=== PATIENT | female | born 1985 | race Caucasian/White ===

== ENCOUNTER 2022-08-29 17:01 | Emergency (ER) | payer MEDICARE, SELFPAY ==
[2022-08-29 17:10] VITALS: BP 122/82; PULSE 89; RESP 16; TEMP 36.7; O2SAT 97; BMI 40.3
[2022-08-29 18:29] LABS: Basophils % 0.4 %; Eosinophils # 0.1 10^3/uL (0.0-0.8); Hematocrit 42.4 % (37.0-47.0); Hemoglobin 13.3 g/dL (11.5-15.3); Lymphocytes # 2.5 10^3/uL (0.8-4.8); Lymphocytes % 22.3 %; Mean Corpuscular HGB Conc 31.4 g/dL (30.0-36.0); Mean Corpuscular Hemoglobin 28.2 pg (28.0-34.0); Mean Platelet Volume 9.9 fL (7.4-10.4); Monocytes # 0.5 10^3/uL (0.2-0.9); Neutrophils # 8.12 10^3/uL (1.8-7.7); Neutrophils % 71.8 %; Nucleated Red Blood Cells % 0 %; Platelet Count 263 10^3/cmm (130-400); Red Blood Count 4.71 10^6/uL (4.1-5.3); Red Cell Distribution Width 14.1 % (12.1-15.1); White Blood Count 11.3 10^3/uL (4.0-10.0)
[2022-08-29 18:51] LABS: Alanine Aminotransferase 26 U/L (0-33); Albumin Level 3.8 g/dL (3.5-5.2); Alkaline Phosphatase 108 U/L (35-105); Anion Gap 11.6 (5-19); Aspartate Amino Transferase 21 U/L (0-32); Blood Urea Nitrogen 5 mg/dL (6-20); Calcium 8.5 mg/dL (8.5-10.5); Carbon Dioxide 28 mmol/L (22-29); Chloride 94 mmol/L (98-107); Globulin 3.5 g/dL (1.3-4.6); Glomerular Filtration Rate 112.5 mL/min (90-130); Glucose 135 mg/dL (65-115); Osmolality Calculated 269 mOsm/kg (285-295); Potassium 3.6 mmol/L (3.5-5.1); Sodium 130 mmol/L (136-145); Total Bilirubin 0.2 mg/dL (0.15-1.2); Total Protein 7.3 g/dL (6.6-8.7)
[2022-08-29 18:53] VITALS: BP 118/93; PULSE 89; RESP 18; O2SAT 99
[2022-08-29 19:09] LABS: HCG Qualitative Urine. Negative (Negative)
[2022-08-29 19:10] LABS: Amphetamines Screen Urine Negative (Negative); Barbiturates Screen Urine Negative (Negative); Benzodiazepines Screen Urine Negative (Negative); Cocaine Screen Urine Negative (Negative); Opiate Screen Urine Negative (Negative); PCP Screen Urine Negative (Negative); THC Screen Urine Negative (Negative)
[2022-08-29 19:18] LABS: Protein Urine Neg (Negative); Specific Gravity, Urine 1.015 (1.005-1.030); Urine Appearance Hazy (CLEAR); Urine Color Yellow (Yellow); pH Urine 5 (5-7)
[2022-08-29 19:19] LABS: Add Urine Microscopic? YES; Bacteria Urine 1+ /hpf; Bilirubin Urine Neg (Negative); Blood Urine Neg (Negative); Glucose Urine UA Norm (Normal); Ketones Urine Negative (Negative); Leukocyte Esterase Urine Trace (Negative); Nitrate Urine Negative (Negative); Urobilinogen Urine Norm (Negative)
[2022-08-29 19:20] LABS: RBC Urine 0-4 /hpf (0-2); WBC Urine 0-4 /hpf (0-5)
[2022-08-29 19:30] VITALS: BP 109/67; PULSE 92; O2SAT 98
--- NOTE | 2022-08-29 20:39 | USR_ITS ---
PROCEDURE INFORMATION: Exam: US Duplex Artery or Vein of the Abdominal and/or Reproductive Organs, Limited Exam date and time: 08/29/2022 9:23 PM Age: 36 years old Clinical indication: Pelvic pain; Prior surgery; Surgery date: 6+ months; Surgery type: RT tube removed secondary to ectopic; Additional info: Suprapubic/lb pain, missed cycle x23 days, neg upt. Suprapubic pain and lb pain TECHNIQUE: Imaging protocol: Real-time duplex ultrasound scan of the arterial or venous flow of the abdomen and/or reproductive organs, with color Doppler flow and spectral waveform analysis with image documentation. Exam focused on the region of clinical interest. Duplex exam was performed to evaluate for vascular conditions. COMPARISON: No relevant prior studies available. FINDINGS: The uterus measures about 10 cm in length. There is no visible focal myometrial mass. Presumed complex nabothian cyst in the cervix, measuring 24 x 15 x 23 mm. There is no intrauterine fluid. Endometrial thickness is 6.6 mm. There is no significant free pelvic fluid. The right ovary measures 38 x 27 x 34 mm, estimated volume 17.7 cc. Small complex cyst versus dominant follicle in the right ovary, measuring 22 x 18 x 22 mm. Significance uncertain due to relatively small size. As clinically directed, follow up in one to three months may be useful to evaluate for resolution of a physiologic cyst, and to guard against a persistent/enlarging lesion. The left ovary measures 38 x 25 x 33 mm, estimated volume 16.5 cc. The left ovary contains a 12 x 8 mm dominant follicle versus extremely small cyst. Significance unlikely due to small size. Ovarian blood flow was evaluated with color and spectral Doppler imaging. Arterial blood flow detected within each ovary. The urinary bladder was not completely evaluated/imaged at this time. Endovaginal scanning provided better visualization/evaluation of the endometrium and ovaries/adnexal regions, as discussed above. PROCEDURE INFORMATION: Exam: US Pelvis Complete, Transabdominal and US Pelvis, Transvaginal Exam date and time: 08/29/2022 9:23 PM Age: 36 years old Clinical indication: Pelvic pain; Prior surgery; Surgery date: 6+ months; Surgery type: RT tube removed secondary to ectopic; Additional info: Suprapubic/lb pain, missed cycle x23 days, neg upt. Suprapubic pain and lb pain TECHNIQUE: Imaging protocol: Real-time complete transabdominal and transvaginal pelvic ultrasound with image documentation. Transvaginal imaging was used for better evaluation of the endometrium, adnexa, and/or cervix. COMPARISON: No relevant prior studies available. FINDINGS: The uterus measures about 10 cm in length. There is no visible focal myometrial mass. Presumed complex nabothian cyst in the cervix, measuring 24 x 15 x 23 mm. There is no intrauterine fluid. Endometrial thickness is 6.6 mm. There is no significant free pelvic fluid. The right ovary measures 38 x 27 x 34 mm, estimated volume 17.7 cc. Small complex cyst versus dominant follicle in the right ovary, measuring 22 x 18 x 22 mm. Significance uncertain due to relatively small size. As clinically directed, follow up in one to three months may be useful to evaluate for resolution of a physiologic cyst, and to guard against a persistent/enlarging lesion. The left ovary measures 38 x 25 x 33 mm, estimated volume 16.5 cc. The left ovary contains a 12 x 8 mm dominant follicle versus extremely small cyst. Significance unlikely due to small size. Ovarian blood flow was evaluated with color and spectral Doppler imaging. Arterial blood flow detected within each ovary. The urinary bladder was not completely evaluated/imaged at this time. Endovaginal scanning provided better visualization/evaluation of the endometrium and ovaries/adnexal regions, as discussed above. US/US pelv w/transvag [id number] IMPRESSION: 1. 22 x 18 x 22 mm small complex cyst versus dominant follicle in the right ovary, see above discussion. 2. The left ovary contains a 12 x 8 mm dominant follicle versus extremely small cyst. 3. Blood flow detected in each ovary. 4. Presumed complex nabothian cyst in the cervix, measuring 24 x 15 x 23 mm. 5. Other details discussed above.
--- NOTE | 2022-08-29 20:51 | ED_ITS ---
HPI - Dizziness General: Chief Complaint: Dizziness Stated Complaint: dizzy/lower back pain (er in [place] 2 weeks ago) Time Seen by Provider: 08/29/22 18:50 Source: patient Mode of arrival: ambulatory Limitations: no limitations History of Present Illness: HPI Narrative: Patient presents emergency department today for evaluation treatment of continued low abdominal pain and low back pain with dysuria. Patient states she was seen and evaluated in outside emergency department where they did a urinalysis which they told her was negative and sent her home. She states she had no blood test or any further evaluation at that time. Patient reports suprapubic pain and dysuria with a white discharge vaginally and itching. She denies any recent antibiotic use. She did try an [id number] yeast medication without any improvement of her symptoms. Patient presents today she still has the symptoms but also developed some dizziness and nausea. It is not constant and she notes that movement-especially standing up makes it worse. She denies any headache associated with this dizziness or fever. She is able to resolve her symptoms by being seated or laying down. Patient reports she is sexually active with her partner. She is not on any type of control. Patient in the room denies any symptoms of discharge or dysuria himself. Patient reports typically having regular menstrual cycles but, states she is 23 days late from her normal cycle with her last menstrual period being August 06 lasting approximately 3 days. She does not have an MARKETING BUSINESS ANALYST. She reports having an ectopic and reportedly having her right ovary and fallopian tube removed approximately 5 years ago. She also had a miscarriage last year per her report. Review of Systems General: Reports: 10 or more systems reviewed and unremarkable except in HPI and below Physical Exam Const: COMMON NORMALS: no acute distress, patient oriented x3 and alert HENMT: COMMON NORMALS: normocephalic, atraumatic, hearing grossly normal bilaterally and moist oral mucous membranes HEAD & SCALP: normocephalic and atraumatic Eye: COMMON NORMALS: Equal, round and reactive pupils present, EOMs intact bilaterally and conjunctivae normal CONJUNCTIVA: Yes conjunctivae normal PUPIL: Yes Equal, round and reactive pupils present Neck/C-Spine: COMMON NORMALS: no JVD OTHER: Full range of motion to the neck with out difficulty or pain. Lymph: LYMPHATIC: no lymphadenopathy noted Resp: COMMON NORMALS: normal respiratory effort, No retractions and No use of accessory muscles Cardio: COMMON NORMALS: no JVD and regular rate RATE: regular rate GI: OTHER: Large body habitus but, pain across the suprapubic region. : COMMON NORMALS: Yes no CVA tenderness BLADDER/KIDNEY EXAM: Yes no CVA tenderness Back/Pelvis: COMMON NORMALS: no CVA tenderness, thoracic and lumbar spine normal to inspection and thoraco-lumbar ROM normal Extremity: COMMON NORMALS: normal to inspection, full ROM and capillary refill normal NARRATIVE EXTREMITY EXAM: Patient is independently ambulatory and weightbearing here in the emergency department. Neuro: COMMON NORMALS: patient oriented x3 SENSORIUM/ORIENTATION: Yes alert Psych: COMMON NORMALS: mental status grossly normal, cooperative, normal affect, speech normal and activity/motor behavior normal SPEECH: Yes normal speech Skin: COMMON NORMALS: no rashes or lesions noted GENERAL SKIN EXAM: no rashes or lesions noted Course Vital Signs: Vital signs: Vital Signs Temperature 98.0 F 08/29/22 17:10 Pulse Rate 84 08/30/22 00:39 Respiratory Rate 18 08/30/22 00:39 Blood Pressure 119/83 08/30/22 00:39 Pulse Oximetry 98 08/30/22 00:39 Oxygen Delivery Me thod Room Air 08/30/22 00:39 MDM - Dizziness Medical Decision Making Patient presented to the emergency department today for continued low abdominal/suprapubic and low back pain. Patient's urinalysis did have a little bit of bacteria but no significant findings otherwise. Vaginal swabs were negative for BV, yeast, and trichomoniasis. There was bacterial findings but, could be normal jeronimo or even a finding of group B strep carrier. Either way, we did proceed on with ultrasound which indicated patient does indeed have a right ovary and contains a complex cyst. She also has a small cyst on the left ovary and, complex nabothian cyst on her cervix. I discussed all these findings with her and encouraged a follow-up appointment with MARKETING BUSINESS ANALYST which I have requested through our case management workers. I am providing the patient Omnicef as this will give us urinary tract coverage as well as potential for vaginal strep coverage. Still, I do think she needs to have follow-up with MARKETING BUSINESS ANALYST to discuss findings of the ovarian cyst and nabothian cyst for continued monitoring. Patient's dizziness does not appear to be related to hypotension, dehydration, or any neurological/meningeal concern. Given that it is only with certain positional changes and, patient is tolerating ambulation here in the ER without difficulty, we will treat with meclizine to see if symptoms are transient at this time. Still, she can follow-up with her primary care physician if needed. Return precautions regarding all symptoms discussed here in the emergency room today. Patient verbalized understanding and agreement to treatment plan. Differential Diagnosis Likely benign paroxysmal positional vertigo (UTI, pyelo-, fibroid, cyst, BV, yeast) Lab Data 08/29/22 18:14 08/29/22 18:14 Radiology Impressions Pelvic/Transvag US 08/29/22 20:39 IMPRESSION: 1. 22 x 18 x 22 mm small complex cyst versus dominant follicle in the right ovary, see above discussion. 2. The left ovary contains a 12 x 8 mm dominant follicle versus extremely small cyst. 3. Blood flow detected in each ovary. 4. Presumed complex nabothian cyst in the cervix, measuring 24 x 15 x 23 mm. 5. Other details discussed above. IMPRESSION: 1. 22 x 18 x 22 mm small complex cyst versus dominant follicle in the right ovary, see above discussion. 2. The left ovary contains a 12 x 8 mm dominant follicle versus extremely small cyst. 3. Blood flow detected in each ovary. 4. Presumed complex nabothian cyst in the cervix, measuring 24 x 15 x 23 mm. 5. Other details discussed above. Laboratory Results WBC 11.3 10^3/uL (4.0-10.0) H 08/29/22 18:14 RBC 4.71 10^6/uL (4.1-5.3) 08/29/22 18:14 Hgb 13.3 g/dL (11.5-15.3) 08/29/22 18:14 Hct 42.4 % (37.0-47.0) 08/29/22 18:14 MCV 90.0 fl (81-99) 08/29/22 18:14 MCH 28.2 pg (28.0-34.0) 08/29/22 18:14 MCHC 31.4 g/dL (30.0-36.0) 08/29/22 18:14 RDW 14.1 % (12.1-15.1) 08/29/22 18:14 Plt Count 263 10^3/cmm (130-400) 08/29/22 18:14 MPV 9.9 fL (7.4-10.4) 08/29/22 18:14 Neut % (Auto) 71.8 % 08/29/22 18:14 Lymph % (Auto) 22.3 % 08/29/22 18:14 [place] % (Auto) 4.0 % 08/29/22 18:14 Eos % (Auto) 1.0 % 08/29/22 18:14 Baso % (Auto) 0.4 % 08/29/22 18:14 Neut # (Auto) 8.12 10^3/uL (1.8-7.7) H 08/29/22 18:14 Lymph # (Auto) 2.5 10^3/uL (0.8-4.8) 08/29/22 18:14 [place] # (Auto) 0.5 10^3/uL (0.2-0.9) 08/29/22 18:14 Eos # (Auto) 0.1 10^3/uL (0.0-0.8) 08/29/22 18:14 Baso # (Auto) 0.0 10^3/uL (0.0-0.1) 08/29/22 18:14 Nucleated RBC % (auto) 0 % 08/29/22 18:14 Nucleated RBCs # 0.0 /100WBC 08/29/22 18:14 Sodium 130 mmol/L (136-145) L 08/29/22 18:14 Potassium 3.6 mmol/L (3.5-5.1) 08/29/22 18:14 Chloride 94 mmol/L (98-107) L 08/29/22 18:14 Carbon Dioxide 28 mmol/L (22-29) 08/29/22 18:14 Anion Gap 11.6 (5-19) 08/29/22 18:14 BUN 5 mg/dL (6-20) L 08/29/22 18:14 Creatinine 0.6 mg/dL (0.5-0.9) 08/29/22 18:14 GFR Calculation 112.5 mL/min (90-130) 08/29/22 18:14 Glucose 135 mg/dL (65-115) H 08/29/22 18:14 Calculated Osmolality 269 mOsm/kg (285-295) L 08/29/22 18:14 Calcium 8.5 mg/dL (8.5-10.5) 08/29/22 18:14 Total Bilirubin 0.2 mg/dL (0.15-1.2) 08/29/22 18:14 AST 21 U/L (0-32) 08/29/22 18:14 ALT 26 U/L (0-33) 08/29/22 18:14 Alkaline Phosphatase 108 U/L (35-105) H 08/29/22 18:14 Total Protein 7.3 g/dL (6.6-8.7) 08/29/22 18:14 Albumin 3.8 g/dL (3.5-5.2) 08/29/22 18:14 Globulin 3.5 g/dL (1.3-4.6) 08/29/22 18:14 HCG, Qual Negative (Negative) 08/29/22 18:56 Urine Color Yellow (Yellow) 08/29/22 18:56 Urine Appearance Hazy (CLEAR) A 08/29/22 18:56 Urine pH 5 (5-7) 08/29/22 18:56 Ur Specific [place] 1.015 (1.005-1.030) 08/29/22 18:56 Urine Protein Neg (Negative) 08/29/22 18:56 Urine Glucose (UA) Norm (Normal) 08/29/22 18:56 Urine Ketones Negative (Negative) 08/29/22 18:56 Urine Blood Neg (Negative) 08/29/22 18:56 Urine Nitrate Negative (Negative) 08/29/22 18:56 Urine Bilirubin Neg (Negative) 08/29/22 18:56 Urine Urobilinogen Norm mg/dL (Negative) 08/29/22 18:56 Ur Leukocyte Esterase Trace (Negative) H 08/29/22 18:56 Urine RBC 0-4 /hpf (0-2) H 08/29/22 18:56 Urine WBC 0-4 /hpf (0-5) H 08/29/22 18:56 Ur Squamous Epith Cells 5-10 /hpf (0-5) H 08/29/22 18:56 Amorphous Sediment Not Reportable 08/29/22 18:56 Urine Bacteria 1+ /hpf (NONE) H 08/29/22 18:56 Urine Opiates Screen Negative ng/mL (Negative) 08/29/22 18:56 Ur Barbiturates Screen Negative ng/mL (Negative) 08/29/22 18:56 Ur Phencyclidine Scrn Negative ng/mL (Negative) 08/29/22 18:56 Ur Amphetamines Screen Negative ng/mL (Negative) 08/29/22 18:56 U Benzodiazepines Scrn Negative ng/mL (Negative) 08/29/22 18:56 Urine Cocaine Screen Negative ng/mL (Negative) 08/29/22 18:56 U Marijuana (THC) Screen Negative ng/mL (Negative) 08/29/22 18:56 Discharge Plan Discharge Patient Disposition: Home Clinical Impression: Dysuria, Nonspecific dizziness, Nabothian cyst, Complex cyst of right ovary Condition: Stable Prescriptions: New meclizine 25 mg tablet 25 mg PO BID PRN (Reason: dizziness) Qty: 14 0RF cefdinir 300 mg capsule 300 mg PO BID 7 Days Qty: 14 0RF Discharge Orders: Discharge ED (Routine); Ordered 08/30/22 Ordered By: Kaitlin Saul Discharge Diet: Usual diet Discharge Activity: Increase activity as tolerated Patient Instructions: Ovarian Cyst (ED), Opioid Safety, Pain Management Activity Restrictions/Additional Instructions: Urinalysis today did show a little bit of bacteria but your vaginal swabs r evealed no signs of trichomonas, bacterial vaginosis, or yeast infection. You did have some general bacteria found on your swab but, can often be found with normal vaginal jeronimo. However, we can treat potential for a vaginal strep infection as well as urinary tract infection with 1 antibiotic. I prescribed you Omnicef to begin taking in the morning and encourage you to continue monitoring symptoms. The ultrasound however found you have both a right and the left ovary. You have a complex cyst on your right ovary and a very small cyst on your left ovary. You also have findings of a complex nabothian cyst on your cervix. As discussed, these are benign growths but, can often times cause p elvic discomfort. I have requested a follow-up appointment with an MARKETING BUSINESS ANALYST to further discuss these ovarian cyst and nabothian cyst as the possibility of your pain. Still, if you have any worsening abdominal pains, fevers, abnormal vaginal bleeding, or change in symptoms she should be seen and reevaluated sooner. Coding Level of Care Code ED Sql Database Programmer for Yue Rodriguez
[2022-08-29 23:03] VITALS: BP 102/68; PULSE 89; RESP 18; O2SAT 99
[2022-08-29 23:35] VITALS: BP 125/90; PULSE 82; O2SAT 91
[2022-08-30 00:39] VITALS: BP 119/83; PULSE 84; RESP 18; O2SAT 98
[2022-08-30 00:40] VITALS: BP 119/83; PULSE 89; RESP 18; O2SAT 98
--- NOTE | 2022-08-30 09:39 | DCPLANNER ---
Addendum entered by Tammie Thorne 09/08/22 12:19: automobile service station manager received the following message from the [facility] clinic regarding follow up appointment: Letter sent, unable to reach patient//JS On 09/01/22 @ 15:23 Zari Ann Wrote To [facility] Front Office Attempted to call patient, LVM//JS Original Note: automobile service station manager had message to schedule a follow up appointment for patient with PREPARATION PLANT REPAIRER. automobile service station manager sent patients information to the front office staff at [facility]. Patients information will be printed and reviewed. Clinic will call patient with appointment information.
--- NOTE | 2022-08-30 11:22 | DCPLANNER ---
manager neonatal was triggered to call patient due to no primary care physician - patient does not live in the area.
== END 2022-08-30 00:48 | disposition home or self-care (01) ==
PROVIDERS: Emergency Provider Physician Assistant
DX: R30.0 Dysuria (principal); R42 Dizziness and giddiness; N88.8 Other specified noninflammatory disorders of cervix uteri; N83.202 Unspecified ovarian cyst, left side; N83.201 Unspecified ovarian cyst, right side
CPT/HCPCS: 36415; 76830; 76856; 80053; 80306; 81001; 81025; 85025; 87210; 99284

== ENCOUNTER 2022-11-26 20:15 | Emergency (ER) | payer MEDICARE, SELFPAY ==
[2022-11-26 20:19] VITALS: BP 142/87; PULSE 112; RESP 20; TEMP 36.7; O2SAT 95; BMI 41.5
[2022-11-26 20:50] LABS: Basophils % 0.3 %; Eosinophils # 0.2 10^3/uL (0.0-0.8); Eosinophils % 1.2 %; Hematocrit 43.3 % (36-47); Lymphocytes # 2.6 10^3/uL (0.8-4.8); Lymphocytes % 19.1 %; Mean Corpuscular HGB Conc 32.1 g/dL (30-55); Mean Corpuscular Hemoglobin 29.1 pg (27-33); Mean Corpuscular Volume 90.8 fl (85-98); Mean Platelet Volume 9.7 fL (7.4-10.4); Monocytes # 0.5 10^3/uL (0.2-0.9); Neutrophils # 10.09 10^3/uL (1.8-7.7); Nucleated Red Blood Cells % 0 %; Platelet Count 271 10^3/cmm (157-399); Red Blood Count 4.77 10^6/uL (3.85-5.65); Red Cell Distribution Width 14.2 % (12.1-15.1); White Blood Count 13.45 10^3/uL (3.29-11.43)
[2022-11-26 21:00] VITALS: BP 118/88; PULSE 96; O2SAT 98
[2022-11-26 21:06] LABS: Alanine Aminotransferase 45 U/L (0-33); Alkaline Phosphatase 100 U/L (35-105); Anion Gap 15.8 (5-19); Aspartate Amino Transferase 42 U/L (0-32); Blood Urea Nitrogen 7 mg/dL (6-20); Carbon Dioxide 27 mmol/L (22-29); Chloride 97 mmol/L (98-107); Globulin 3.7 g/dL (1.3-4.6); Glomerular Filtration Rate 138.1 mL/min (90-130); Glucose 119 mg/dL (65-115); Lipase 18 U/L (13-60); Osmolality Calculated 281 mOsm/kg (285-295); Potassium 3.8 mmol/L (3.5-5.1); Sodium 136 mmol/L (136-145); Total Bilirubin 0.5 mg/dL (0.15-1.2); Total Protein 7.7 g/dL (6.6-8.7)
[2022-11-26 21:07] LABS: HCG, Serum Qual Negative (Negative)
--- NOTE | 2022-11-26 21:09 | ED_ITS ---
HPI - Abdominal Pain General: Chief Complaint: Abdominal Pain Stated Complaint: abd pain Time Seen by Provider: 11/26/22 21:03 History of Present Illness: 37-year-old female comes in today with complaints of lower abdominal pain going through to her back. Patient denies any fever or chills. Patient reports no nausea or vomiting. Patient's had no abdominal surgeries. Patient does have a history of PCOS and mental health disorders. Patient appears nontoxic. Patient does appear in mild to moderate pain. Patient reports the symptoms started about 3 to 4 days ago and has progressively worsened. Patient denies any constipation, diarrhea, or blood in the stools or urine. Associated Symptoms: Denies constipation, diarrhea, fever(s), hematochezia, hematuria and vomiting Review of Systems General: Reports: 10 or more systems reviewed and unremarkable except in HPI and below Const: Denies: fever(s) Card: Denies: chest pain Resp: Denies: dyspnea GI: Reports: abdominal pain (Lower abdominal pain); Denies: vomiting, diarrhea, constipation or hematochezia : Denies: difficulty voiding, hematuria, vaginal bleeding or vaginal discharge Musc: Reports: back pain Skin/Breast: Denies: rash Neuro: Denies: headache(s) Physical Exam Const: COMMON NORMALS: alert HENMT: COMMON NORMALS: normocephalic HEAD & SCALP: normocephalic Neck/C-Spine: COMMON NORMALS: full ROM Resp: COMMON NORMALS: normal respiratory effort and clear to auscultation bilaterally AUSCULTATION: clear to auscultation bilaterally Cardio: COMMON NORMALS: regular rate and regular rhythm RATE: regular rate RHYTHM: regular rhythm GI: COMMON NORMALS: Soft to palpation PALPATION: Yes Soft to palpation and Yes Tenderness to palpation present (GI) (Suprapubic) : COMMON NORMALS: Yes no CVA tenderness BLADDER/KIDNEY EXAM: Yes no CVA tenderness Back/Pelvis: COMMON NORMALS: no CVA tenderness Extremity: COMMON NORMALS: normal to inspection and no pedal edema Neuro: SENSORIUM/ORIENTATION: Yes alert Skin: COMMON NORMALS: turgor normal GENERAL SKIN EXAM: turgor normal Course Vital Signs: Vital signs: Vital Signs Temperature 98.0 F 11/26/22 20:19 Pulse Rate 99 11/26/22 22:23 Respiratory Rate 24 H 11/26/22 21:38 Blood Pressure 136/70 10/06/23 22:23 Pulse Oximetry 96 11/26/22 22:23 Oxygen Delivery Me thod Room Air 11/26/22 22:23 MDM - Abdominal Pain Medical Decision Making Patient comes in today with lower abdominal pain radiating to her back. Patient denies any fever or chills. Patient reports no vaginal discharge, abnormal bleeding, blood in urine or stool. Patient appears nontoxic. Patient appears in mild to moderate pain. Patient moves all extremities well. Differential diagnosis includes but not limited to urinary tract infection, ovarian cyst, appendicitis, constipation, diverticulitis. CBC noted a white count 13,000, CMP was normal. Urinalysis has positive for leukocyte esterases. CT of the abdomen pelvis showed some 2 cm left ovarian follicle but otherwise unremarkable. Patient be started on antibiotics for urinary tract infection and recommended follow-up with primary care in 1 week for recheck of urine. Recommend return to the ER for new concerns. Lab Data 11/26/22 20:44 11/26/22 20:44 Labs/Radiology: Radiology Impressions Abdomen/Pelvis CT 11/26/22 21:14 IMPRESSION: 1. 2 cm left ovarian follicle is noted, otherwise no abnormality to explain abdomen or pelvic pain. Normal appendix. No urolithiasis or bowel obstruction. 2. Mildly enlarged fatty liver. Laboratory Results WBC 13.45 10^3/uL (3.29-11.43) H 11/26/22 20:44 RBC 4.77 10^6/uL (3.85-5.65) 11/26/22 20:44 Hgb 13.90 g/dL (11.27-16.99) 11/26/22 20:44 Hct 43.3 % (36-47) 11/26/22 20:44 MCV 90.8 fl (85-98) 11/26/22 20:44 MCH 29.1 pg (27-33) 11/26/22 20:44 MCHC 32.1 g/dL (30-55) 11/26/22 20:44 RDW 14.2 % (12.1-15.1) 11/26/22 20:44 Plt Count 271 10^3/cmm (157-399) 11/26/22 20:44 MPV 9.7 fL (7.4-10.4) 11/26/22 20:44 Neut % (Auto) 75.0 % 11/26/22 20:44 Lymph % (Auto) 19.1 % 11/26/22 20:44 [place] % (Auto) 4.0 % 11/26/22 20:44 Eos % (Auto) 1.2 % 11/26/22 20:44 Baso % (Auto) 0.3 % 11/26/22 20:44 Neut # (Auto) 10.09 10^3/uL (1.8-7.7) H 11/26/22 20:44 Lymph # (Auto) 2.6 10^3/uL (0.8-4.8) 11/26/22 20:44 [place] # (Auto) 0.5 10^3/uL (0.2-0.9) 11/26/22 20:44 Eos # (Auto) 0.2 10^3/uL (0.0-0.8) 11/26/22 20:44 Baso # (Auto) 0.0 10^3/uL (0.0-0.1) 11/26/22 20:44 Nucleated RBC % (auto) 0 % 11/26/22 20:44 Nucleated RBCs # 0.0 /100WBC 11/26/22 20:44 Sodium 136 mmol/L (136-145) 11/26/22 20:44 Potassium 3.8 mmol/L (3.5-5.1) 11/26/22 20:44 Chloride 97 mmol/L (98-107) L 11/26/22 20:44 Carbon Dioxide 27 mmol/L (22-29) 11/26/22 20:44 Anion Gap 15.8 (5-19) 11/26/22 20:44 BUN 7 mg/dL (6-20) 11/26/22 20:44 Creatinine 0.5 mg/dL (0.5-0.9) 11/26/22 20:44 GFR Calculation 138.1 mL/min (90-130) H 11/26/22 20:44 Glucose 119 mg/dL (65-115) H 11/26/22 20:44 Calculated Osmolality 281 mOsm/kg (285-295) L 11/26/22 20:44 Calcium 9.0 mg/dL (8.5-10.5) 11/26/22 20:44 Total Bilirubin 0.5 mg/dL (0.15-1.2) 11/26/22 20:44 AST 42 U/L (0-32) H 11/26/22 20:44 ALT 45 U/L (0-33) H 11/26/22 20:44 Alkaline Phosphatase 100 U/L (35-105) 11/26/22 20:44 Total Protein 7.7 g/dL (6.6-8.7) 11/26/22 20:44 Albumin 4.0 g/dL (3.5-5.2) 11/26/22 20:44 Globulin 3.7 g/dL (1.3-4.6) 11/26/22 20:44 Lipase 18 U/L (13-60) 11/26/22 20:44 HCG, Qual Negative (Negative) 11/26/22 20:44 Urine Color Yellow (Yellow) 11/26/22 22:20 Urine Appearance Hazy (CLEAR) A 11/26/22 22:20 Urine pH 5 (5-7) 11/26/22 22:20 Ur Specific [place] 1.020 (1.005-1.030) 11/26/22 22:20 Urine Protein Neg (Negative) 11/26/22 22:20 Urine Glucose (UA) Norm (Normal) 11/26/22 22:20 Urine Ketones 1+ (Negative) H 11/26/22 22:20 Urine Blood Neg (Negative) 11/26/22 22:20 Urine Nitrate Negative (Negative) 11/26/22 22:20 Urine Bilirubin Neg (Negative) 11/26/22 22:20 Urine Urobilinogen Neg mg/dL (Negative) 11/26/22 22:20 Ur Leukocyte Esterase 2+ (Negative) H 11/26/22 22:20 Amorphous Sediment Not Reportable 11/26/22 22:20 All radiology interpretation(s) finalized by discharge Discharge Plan Discharge Patient Disposition: Home Clinical Impression: UTI (urinary tract infection) due to Enterococcus Condition: Stable Prescriptions: New cephalexin 500 mg capsule 500 mg PO BID 7 Days Qty: 14 0RF hydrocodone-acetaminophen 5-325 mg tablet 1 tab PO Q8H PRN (Reason: pain (scale score 7-10)) Qty: 6 0RF No Action meclizine 25 mg tablet 25 mg PO BID PRN (Reason: dizziness) Qty: 14 0RF Discharge Orders: Discharge ED (Routine); Ordered 11/26/22 Ordered By: Gonzalez Ceron Discharge Diet: Usual diet Patient Instructions: Urinary Tract Infection in Women (ED), Opioid Safety Activity Restrictions/Additional Instructions: Drink plenty of water and fluids. Take antibiotics as directed. Follow-up with primary care in 1 week for recheck of urine. Return to ED for new concerns or worsening symptoms. Coding Level of Care Code ED Swing Frame Grinder Operator for Yue Rodriguez
--- NOTE | 2022-11-26 21:14 | CTR_ITS ---
PROCEDURE INFORMATION: Exam: CT Abdomen And Pelvis With Contrast Exam date and time: 11/26/2022 9:49 PM Age: 37 years old Clinical indication: Abdominal pain; Localized; Lower; Patient HX: Worsening abd pain over last several days. History of pcos. ; Additional info: Lower abd pain TECHNIQUE: Imaging protocol: Computed tomography of the abdomen and pelvis with contrast. Radiation optimization: All CT scans at this facility use at least one of these dose optimization techniques: automated exposure control; mA and/or kV adjustment per patient size (includes targeted exams where dose is matched to clinical indication); or iterative reconstruction. Contrast material: OMNI 350; Contrast volume: 100 ml; Contrast route: INTRAVENOUS (IV); REPORTING DATA: Count of CT and Cardiac NM exams in prior 12 months: This patient has received 0 known CTs and 0 known cardiac nuclear medicine studies in the 12 months prior to the current study. COMPARISON: US pelv w/transvag [id number] 08/29/2022 9:23 PM RADIATION DOSE METRICS: Total DLP (mGy-cm): 1339.6 FINDINGS: Lungs: Clear basilar lung parenchyma. Pleural spaces: No pleural fluid. Heart: Normal heart size. Liver: Homogeneous low attenuation throughout the liver is compatible with fatty infiltration. Liver measures 19.2 cm in length. Gallbladder and bile ducts: Postprandial gallbladder is contracted. Pancreas: Normal. No ductal dilation. Spleen: Spleen measures 11.4 cm in length. Adrenal glands: Normal configuration. Kidneys and ureters: Kidneys enhance symmetrically and demonstrate no evidence of mass, calculus, obstruction, or inflammation. Stomach and bowel: Postprandial stomach. Normal caliber small bowel. Normal colon. Appendix: Normal appendix is confirmed. Intraperitoneal space: No free air. No significant fluid collection. Vasculature: Normal caliber arterial structures. Lymph nodes: No enlarged lymph nodes. Urinary bladder: Unremarkable as visualized. Reproductive: Physiologic appearance for age. Bones/joints: No fracture or destructive lesion. Soft tissues: Unremarkable. CT/CT abdomen pelvis w con* [id number] IMPRESSION: 1. 2 cm left ovarian follicle is noted, otherwise no abnormality to explain abdomen or pelvic pain. Normal appendix. No urolithiasis or bowel obstruction. 2. Mildly enlarged fatty liver.
[2022-11-26 21:38] VITALS: RESP 24; O2SAT 100
[2022-11-26] MEDS: fentaNYL 50 mcg/mL INJ 2mL IVP (21:38)
[2022-11-26] MEDS: iohexol 350 mg/mL 500 mL Btl (per mL) IV (21:52)
[2022-11-26 22:23] VITALS: BP 136/70; PULSE 99; O2SAT 96
[2022-11-26 22:28] LABS: Urine Appearance Hazy (CLEAR); Urine Color Yellow (Yellow)
[2022-11-26 22:29] LABS: Add Urine Microscopic? YES; Bilirubin Urine Neg (Negative); Blood Urine Neg (Negative); Glucose Urine UA Norm (Normal); Ketones Urine 1+ (Negative); Leukocyte Esterase Urine 2+ (Negative); Nitrate Urine Negative (Negative); Protein Urine Neg (Negative); Urobilinogen Urine Neg (Negative); pH Urine 5 (5-7)
[2022-11-26 22:40] LABS: Add Urine Culture? Yes; Amorphous Sediment Urine 1+ /hpf; Bacteria Urine TRACE /hpf; RBC Urine 0-4 /hpf (0-2); Squamous Epithelial Cell Urine 0-4 /hpf (0-5); WBC Urine 15-25 /hpf (0-5)
[2022-11-26] MEDS: cephALEXin 500 mg Capsule PO (22:45)
[2022-11-26] MEDS: HYDROcodone-acetaminophen 5-325 mg Tablet 1 TAB PO (23:26)
== END 2022-11-26 23:28 | disposition home or self-care (01) ==
PROVIDERS: Emergency Provider Nurse Practitioner Family
DX: N39.0 Urinary tract infection, site not specified (principal); B95.2 Enterococcus as the cause of diseases classified elsewhere
CPT/HCPCS: 36415; 74177; 80053; 81001; 83690; 84703; 85025; 87086; 96374; 99285; J3010; Q9967